=== PATIENT | male | born 1990 | race Caucasian/White ===

== ENCOUNTER 2017-06-12 23:32 | Emergency (ER) | payer OTHER ==
[~2017-06-12] VITALS: Ht 190.5 cm; Wt 104.3 kg
[2017-06-13 00:06] VITALS: BP 140/92
[2017-06-13 13:01] LABS: Hepatitis B Surface Antibody Positive
== END 2017-06-13 01:21 | disposition home or self-care (01) ==
LOC: ER 23:42
DX: S61.031A Puncture wound without foreign body of right thumb without damage to nail, initial encounter (principal); W46.1XXA Contact with contaminated hypodermic needle, initial encounter; Y93.89 Activity, other specified; Y99.0 Civilian activity done for income or pay; Y92.69 Other specified industrial and construction area as the place of occurrence of the external cause
CPT/HCPCS: 36415; 86703; 86706; 86803; 87340